=== PATIENT | female | born 1955 | race Caucasian/White ===

== ENCOUNTER → 2017-01-03 | Day surgery (SDC) ==
[2017-01-03 09:03] LABS: INR 1.04; PTT 26.5 Seconds (22.0-36.0)
--- NOTE | 2017-01-03 12:39 | Diag Imaging Result Document ---
PROCEDURE NAME: US GB < RUQ (LIMITED) - 01/03/2017 ULTRASOUND OF THE LIVER, 01/03/2017: COMPARISON: CT 12/16/2016. FINDINGS: Ultrasound was performed in an attempt to perform biopsy. There is an ill-defined hypoechoic lesion high in the dome of the right lobe of the liver. This measures about 4 cm. Due to its high location and difficult anatomy, ultrasound-guided biopsy could not be performed. CT- guided biopsy will be attempted. IMPRESSION: Liver mass suspicious for a metastasis.
[2017-01-03 12:47] VITALS: BP 144/86
--- NOTE | 2017-01-03 14:30 | Diag Imaging Result Document ---
PROCEDURE NAME: CT GUIDED BX LIVER - 01/03/2017 CT-GUIDED LIVER BIOPSY: COMPARISON: 12/16/2016. FINDINGS: The risks and benefits of the procedure were discussed with the patient. All questions were answered. Written and verbal informed consent was obtained. Overlying skin was prepped and draped in sterile fashion. Anesthesia was achieved with injection of 15 mL of 1% lidocaine. Using intermittent CT guidance, the 10/15 cm 19/20 gauge biopsy needle that was advanced into the superior right lobe of the liver dome. About 12 biopsy specimens were obtained. The needles were withdrawn intact. The patient reported no symptoms from the procedure. IMPRESSION: Successful and uncomplicated ultrasound guided liver mass biopsy.
== END | disposition home or self-care (01) ==
LOC: US 06:49
PROVIDERS: ATTEND Internal Medicine
DX: K76.0 Fatty (change of) liver, not elsewhere classified (principal); K74.0 Hepatic fibrosis; R16.0 Hepatomegaly, not elsewhere classified; Z79.899 Other long term (current) drug therapy; Z85.038 Personal history of other malignant neoplasm of large intestine
CPT/HCPCS: 47000; 76705; 77012; 85610; 85730; 88305; 88313

== ENCOUNTER 2020-01-25 21:51 | Inpatient (IN) ==
--- NOTE | 2020-01-25 22:21 | PROVIDER DOCUMENTATION ---
HPI-General Adult - General Chief Complaint: Abdominal Pain Stated Complaint: ABD PAIN/FEMALE Time Seen by Provider: 01/25/20 21:53 Source: patient Allergies/Adverse Reactions: Patient Allergies Allergy/AdvReac Type Severity Reaction Status Date / Time No Known Allergies Allergy Verified 01/25/20 22:39 Home Medications: Home Medication List Medication Instructions Recorded Confirmed Last Taken Type LISINOpril [Prinivil] 20 mg PO DAILY 05/26/15 01/25/20 01/25/20 05:30 History Levothyroxine Sodium [Synthroid] 88 mcg PO DAILY 10/14/15 01/25/20 01/25/20 05:30 History Rivaroxaban [Xarelto] 20 mg PO DAILY 11/27/19 01/25/20 01/25/20 06:30 History Regorafenib [Stivarga] 4 tab PO DAILY 01/25/20 01/25/20 01/25/20 06:30 History - History of Present Illness -Gen Adult Nature of Presenting Problems: 64 yof with colon cancer with liver mets presents with c/o generalized swelling, abdominal distention, SOB worse than baseline. Symptoms began last week but have progressively gotten worse so she presents to the ER. She is in mild distress on exam and is chronically ill appearing. Location of Pain/Injury: reports: abdomen, lower extremity Pain Radiation: reports: no radiation Quality of Pain: reports: fullness Severity: reports: severe Onset/Duration: reports: 1 week ago Context/Activities at Onset: reports: none Modifying Factors: improves with: nothing Associated Symptoms: reports: constipation, cough, loss of appetite, nausea, trouble walking. denies: chest pain, fever/chills Similar Symptoms Previously?: Yes Recently seen or treated by another doctor?: Yes (Dr. Marroquin-oncologist resumed PO chemo) Review of Systems - Adult - REVIEW OF SYSTEMS - ADULT Constitutional: reports: no symptoms reported. denies: see HPI, chills, fever, fatique, night sweats, weight gain, weight loss, other Eyes: reports: other (yellowing). denies: no symptoms reported, see HPI, discharge, dry eyes, decreased vision, blurred vision, double vision, eye pain, redness Ears, Nose, Mouth & Throat: reports: no symptoms reported. denies: see HPI, ear discharge, ear pain, hearing loss, tinnitus, epistaxis, sinus problem, nose pain, loose teeth, mouth/dental pain, mouth swelling, hoarseness, throat pain, throat swelling, other Cardiovascular: reports: no symptoms reported. denies: see HPI, chest pain, edema, heart murmur, irregular heart rate, orthopnea, palpitations, poor circulation, PND, syncope, other Respiratory: reports: see HPI, cough, shortness of breath. denies: no symptoms reported, chronic cough, dyspnea on exertion, excessive sputum production, hemoptysis, pleurisy, wheezing, other Gastrointestinal: reports: see HPI, abdominal pain, constipation, nausea, poor a ppetite. denies: no symptoms reported, hematemesis, diarrhea, difficulty swallowing, frequent heartburn, rectal bleeding, vomiting, other Genitourinary: reports: no symptoms reported. denies: see HPI, dysuria, discharge, frequency, flank pain, frequent UTI's, hematuria, hesitency, incontinence, urinary retention, urgency, other Musculoskeletal: reports: no symptoms reported. denies: see HPI, bone pain, back pain, frequent leg cramps, joint pain, joint swelling, muscle aches, muscle weakness, neck pain, other Integumentary: reports: see HPI. denies: no symptoms reported, hives, hair loss, itching, mole changes, nail changes, rash, skin sores/ulcer, skin thickening, other Neurological: reports: no symptoms reported. denies: see HPI, ataxia, dizziness/vertigo, headache/migraines, loss of balance, numbness, paresthesia, seizure, slurred speech, syncope, tremors, other Psychiatric: reports: no symptoms reported. denies: see HPI, anxiety, anti-depressant use, alcohol/drug dependence, depression, emotional problems, insomnia, panic attacks, suicidal thoughts, other Endocrine: reports: no symptoms reported. denies: see HPI, change in skin pigment, excessive sweating, goiter, cold intolerance, heat intolerance, increased hunger, increased thirst, polyuria, other Hematologic/Lymphatic: reports: no symptoms reported. denies: see HPI, blood clots, easy bruising, low blood count, lymphedema, prolonged bleeding, swollen lymph nodes, transfusions, other Allergic/Immunologic: reports: no symptoms reported. denies: see HPI, allergic reactions, allergic rhinitis, asthma, eczema, food allergy, frequent infections, hay fever, hives, positive PPD, urticaria, other Past History - Adult - PAST MEDICAL HISTORY-ADULT Review of Records: reports: Nursing Assessment Review, Social history reviewed & non-contributory. Major Childhood Illnesses: reports: denies history Cardiovascular: reports: HTN Respiratory: reports: COPD Gastrointestinal: reports: cancer (colon with mets to liver) Obstetrical/Gynecological: reports: denies history Genitourinary: reports: denies history Musculoskeletal: reports: denies history Neurological: reports: denies history Endocrine/Immune: reports: thyroid disorder (hypo) Other Conditions: reports: denies history - PRIOR SURGERIES/PROCEDURES Surgical/Procedure History: reports: cholecystectomy, hysterectomy, bowel surgery (colon resection) - IMMUNIZATION STATUS Childhood Immunizations: See Nurse Assessment Flu Vaccine: See Nurse Assessment - FAMILY HISTORY Family History: reviewed, not pertinent Physical Exam-General - PHYSICAL EXAM-ADULT Initial Vital Signs Reviewed: Yes - CONSTITUTIONAL General Appearance: alert, mild distress - EYES Eyes: PERRL/EOMI, pink conjunctivae - HEAD, EARS, NOSE, MOUTH & THROAT HENMT: normocephalic/atraumatic, moist mucous membranes, normal ENT inspection - NECK Neck: non-tender, full range of motion - RESPIRATORY Respiratory: chest non-tender, no pleuratic chest pain, wheezing. negative: no respiratory distress (mild distress, placed on 2 L n/c for comfort) - CARDIOVASCULAR Cardiovascular: normal peripheral pulses, no gallop, no JVD, no murmur, tach ycardia. negative: no edema (+2 pitting edema BLE) - GASTROINTESTINAL (ABDOMEN) Abdominal Exam: no pulsatile mass, distended, tenderness - LYMPHATIC Lymphatic: no adenopathy - MUSCULOSKELETAL Back Exam: normal inspection, no CVA tenderness, no vertebral tenderness Extremity: normal range of motion, non-tender, pedal edema (BLE +2) Peripheral Pulses: radial (R): 2+, radial (L): 2+ - SKIN Integumentary: normal turgor, warm/dry, jaundice (severe) - NEUROLOGIC Neurologic: grossly normal - PSYCHIATRIC Psych/Mental Status: normal mood/affect, oriented x 3 Progress - PLAN OF CARE/RESULTS Progress/Plan/Lab Results: Vital Signs - 8 hr 01/25/20 21:54 Temperature 97.5 F L Pulse Rate 120 H Respiratory Rate 24 Blood Pressure 127/73 O2 Sat by Pulse Oximetry 95 Orders Category Date Time Status Cardiac Monitoring NOW Care 01/25/20 22:04 Active ED: Urine Bedside ORDERED Care 01/25/20 22:03 Active IV Insertion NOW Care 01/25/20 22:04 Active NEWS Score >or=5:Order NEWS Bundle S.O. NOW Care 01/25/20 22:02 Active Notify Provider of NEWS Score NOW Care 01/25/20 22:04 Active NPO Diet 01/25/20 22:03 Active CHEST-1 VIEW [RAD] Stat Exams 01/25/20 22:04 Ordered BLOOD CULTURE [BLDCUL] Stat Lab 01/25/20 22:04 Uncollected BNP [PRO B-NATRIURETIC PEPTIDE] Stat Lab 01/25/20 22:07 Uncollected CBC WITH DIFF [HEME] Stat Lab 01/25/20 22:03 Uncollected CBC WITH DIFF [HEME] Stat Lab 01/25/20 22:04 Uncollected CK PROFILE [SP CHEM] Stat Lab 01/25/20 22:04 Uncollected COMPREHENSIVE METABOLIC PANEL [CHEM] Stat Lab 01/25/20 22:03 Uncollected COMPREHENSIVE METABOLIC PANEL [CHEM] Stat Lab 01/25/20 22:04 Uncollected LACTATE, PLASMA [CHEM] Q3H Lab 01/25/20 22:15 Uncollected LACTATE, PLASMA [CHEM] Q3H Lab 01/26/20 01:15 Uncollected LACTATE, PLASMA [CHEM] Q3H Lab 01/26/20 04:15 Uncollected LIPASE [CHEM] Stat Lab 01/25/20 22:03 Uncollected PROTIME WITH INR [COAG] Stat Lab 01/25/20 22:04 Uncollected PTT [COAG] Stat Lab 01/25/20 22:04 Uncollected TROPONIN T HIGH SENSITIVITY Stat Lab 01/25/20 22:04 Uncollected UA NIMS W/REFLEX CULT [URINALYSIS] Stat Lab 01/25/20 22:06 Uncollected Abd Pain/OB <20 weeks Stat Oth 01/25/20 22:03 Ordered O2 Per Protocol Stat Oth 01/25/20 22:04 Active EKG [EKG] Stat Ther 01/25/20 22:12 Ordered On initial exam advanced care planning was discussed with the patient she has no living will, she reports if she stops breathing she would want to "be on ventilator for a little while", she reports if her heart were stopped should would want "nothing" done. Dr. Aguirre was notified so that he could place orders after confirming with the patient. She is alert and oriented and able to make her own medical decisions 0000: the patient and spouse have discussed code status, they after discussed elect DNR/DNR status with all medical interventions. Dr Aguirre has coffered with patient and spouse who verbalized this to the patient Result Diagrams: 01/25/20 22:52 01/25/20 22:52 - CONSULTS/PCP/HOSPITALIST Notification #1 *Consult/PCP/Hospitalist*: Dr. Short Time Discussed: 00:22 Consult Disposition: Admit (no new recommened orders) Departure - Departure Date of Disposition Decision: 01/26/20 Time of Disposition Decision: 00:05 DIAGNOSIS: Colon cancer metastasized to liver, Liver failure, Pneumonia, Hyponatremia, Coagulopathy Disposition: ADMITTED INPATIENT 09 Certified Medical Emergency: Emergent Condition: Stable Referrals and Follow-Ups: None,PCP [Primary Care Provider] - - Critical Care Note This patient required my direct & personal management of CC.: Yes Total Time (mins): 45 Critical Care Statement: This patient required my direct personal management to treat or rule out processes, the absence of which, could potentiallly result in sudden, clinically significant life or limb threatening deterioration. Attestation - Physician/ MONA Attestation Patient care was provided by Advanced Practice Provider:: Yes Advanced Practice Provider:: Jordyn Llamas Advanced Practice Provider documentation review:: The Mid-level provider documentation, treatment plan and medical decision making was reviewed by the jovanni perdomo who agrees with all treatment and medical decision making by the MLP. The physician spent face to face time with patient:: Yes (Dr. Aguirre) Advanced Practice Provider documentation review:: Supervising physician onsite and consulted in the evaluation and care of this patient. The physician did have a face to face encounter with the patient.
[2020-01-25 23:17] LABS: URINE SOURCE CATH
[2020-01-25 23:22] LABS: BILIRUBIN URINE LARGE (NEGATIVE); BLOOD URINE NEGATIVE (NEGATIVE); COLOR YELLOW; GLUCOSE URINE NEGATIVE (NEGATIVE); KETONE URINE NEGATIVE (NEGATIVE); LEUKOCYTES URINE NEGATIVE (NEGATIVE); NITRITE URINE NEGATIVE (NEGATIVE); PROTEIN URINE NEGATIVE (NEGATIVE); SP GRAVITY URINE 1.013; TURBIDITY URINE CLEAR (CLEAR); UR EPITHELIAL CELLS <10 /HPF (<10); URINE BACTERIA NEGATIVE /HPF; URINE RBC <10 /HPF (<10); URINE WBC <10 /HPF (<10); UROBILINOGEN URINE NORMAL (NORMAL)
[2020-01-25 23:28] LABS: BASO# 0.03 X1000 (0.0-0.2); BASO% 0.2 % (0.0-0.8); EOS% 0.8 % (0.0-10.0); HEMATOCRIT 34.5 % (37.0-47.0); HEMOGLOBIN 11.8 g/dL (12.0-16.0); IMM GRAN# 0.04 X1000 (0.0-0.04); IMM GRAN% 0.3 % (0.0-0.5); LYMPH% 6.5 % (20.5-51.1); MCH 29.6 PG (27-31); MCHC 34.2 g/dL (33-37); MCV 86.7 FL (81-99); MONO# 1.49 X1000 (0.11-0.59); MONO% 12.2 % (1.7-9.3); MPV 11.3 FL (7.4-10.4); NEUT# 9.76 X1000 (1.4-6.5); PLT 200 X1000 (130-400); RBC 3.98 XMIL (4.2-5.4); RDW 21.8 % (11.5-14.5); WBC 12.22 X1000 (4.8-10.8)
--- NOTE | 2020-01-25 23:28 | EKG Report ---
Test Performed on : 01/25/2020 11:16:27 PM Test Reason : CP Blood Pressure : / mmHG Vent. Rate : 118 BPM Atrial Rate : 118 BPM P-R Int : 126 ms QRS Dur : 070 ms QT Int : 286 ms P-R-T Axes : 065 049 -39 degrees QTc Int : 400 ms Sinus tachycardia. Possible Left atrial enlargement Low voltage QRS Nonspecific T wave abnormality Abnormal ECG When compared with ECG of 16-MAY-2017 13:41, Vent. rate has increased BY 47 BPM Nonspecific T wave abnormality, worse in Inferior leads Nonspecific T wave abnormality now evident in Anterolateral leads Unconfirmed Result
[2020-01-25 23:30] LABS: AGAP 15; ALBUMIN 2.4 g/dL (3.5-5.0); ALKALINE PHOSPHATASE 797 U/L (32-104); BUN 8 mg/dL (8-22); CALCIUM 8.1 mg/dL (8.8-10.2); CHLORIDE 91 mmol/L (98-107); CK PROFILE 79 U/L (24-173); COSMO 255; CREATININE 0.3 mg/dL (0.5-0.9); ESTIMATED GFR > 60; GLUCOSE 127 mg/dL (70-104); GOT 122 U/L (10-30); GPT 35 U/L (10-36); LIPASE 12 U/L (13-60); POTASSIUM 5.2 mmol/L (3.5-5.1); SODIUM 127 mmol/L (136-145); TCO2 21 mmol/L (25-35)
[2020-01-25] MEDS ORDERED: NS 1,000 ML IV ONE (23:43)
[2020-01-25] MEDS ORDERED: ZOSYN 3.375 GM in NS 50 ML IV ONE (23:46)
[2020-01-25] MEDS ORDERED: VANCOMYCIN 1 GM/NS 1 GM/250 ML IVPB IV ONE (23:46)
[2020-01-25 23:53] LABS: INR 2.09; PROTIME 24.7 Seconds (11.0-16.0)
[2020-01-25 23:54] LABS: PTT 42.8 Seconds (22.3-41.8)
[2020-01-26] MEDS ORDERED: OXYCODONE PO ONE (00:04)
[2020-01-26] MEDS ORDERED: OXY IR PO ONE (00:15)
[2020-01-26] MEDS ORDERED: KAYEXALATE PO ONE (04:15)
[2020-01-26] MEDS ORDERED: VANCOMYCIN IV PER PHARMACY MISC SCH (04:15)
[2020-01-26] MEDS: DUONEB (A & A) INH SCH ×6 (04:29→23:39)
[2020-01-26] MEDS: MAXIPIME 2 GM/NS 2 GM/100 ML IVPB IV SCH ×2 (05:21→21:52)
[2020-01-26] MEDS: MS CONTIN PO SCH ×2 (05:22→19:12)
[2020-01-26] MEDS ORDERED: VANCOMYCIN 850 MG in NS 250 ML IV ONE (06:00)
[2020-01-26] MEDS: SYNTHROID PO SCH (06:50)
--- NOTE | 2020-01-26 07:13 | Diag Imaging Result Doc PS360 ---
EXAM: CT ANGIOGRAM THORAX HISTORY: hypoxia TECHNIQUE: CT chest without intravenous contrast. Pulmonary arterial protocol with MIP images. COMPARISON: 08/23/2019 FINDINGS: Trace pleural fluid. No aortic aneurysm or dissection. Normal opacification of the pulmonary arteries and their branches. No enlarged lymph nodes. There are many lung nodules scattered throughout both lungs. The majority of these measure less than 1 cm. The largest is in the posterior right lower lobe measuring 2.0 cm. The lung nodules are much more numerous on the current exam and larger on the current exam when compared to the prior study. There are diffuse hepatic metastases. These are also larger and more numerous than on the prior study. A small amount of ascites has developed since the prior study. IMPRESSION: 1.No pulmonary emboli 2.Increase in the lung metastases 3.Increase in the hepatic metastases 4.Development of trace pleural fluid 5.Development of a small amount of ascites 6.A preliminary report was given at 5:57 AM This exam was performed using automated exposure control, adjustment of mA or kV according to patient size, and/or use of iterative reconstruction technique. Electronically signed by Obed Mckeon 01/26/2020 7:11 AM
--- NOTE | 2020-01-26 07:30 | Diag Imaging Result Doc PS360 ---
EXAM: CHEST-1 VIEW HISTORY: sepsis TECHNIQUE: Single view COMPARISON: 10/04/2018 FINDINGS: Poor inspiratory effort. There are numerous bilateral lung nodules which is developed. No cardiomegaly. No pulmonary edema. No pleural effusions identified. No change in the right-sided catheter. IMPRESSION: Development of numerous pulmonary nodules. Electronically signed by Obed Mckeon 01/26/2020 7:27 AM
--- NOTE | 2020-01-26 07:52 | HISTORY AND PHYSICAL ---
PRIMARY CARE PHYSICIAN: Dr. Bruce. CHIEF COMPLAINT: Shortness of breath of 6 days' duration. HISTORY OF PRESENTING COMPLAINT: Patient is a 64-year-old female with history of metastatic colon cancer, hypertension, hypothyroidism, who presented with shortness of breath of 6 days' duration. The patient states over the last 6 days, she has been progressively getting more short of breath. The shortness of breath started suddenly associated with cough productive of clear sputum, which has increased in quantity as well. She denies any chest pain, any fever. Denies any nausea or vomiting. She describes bilateral leg swelling over the last 5 days as well, which is new. She states this has not shown improvement in the last 5 days, has been progressively swelling. She denies any orthopnea or PND but describes occasional palpitations. Of note, patient has a history of metastatic colon cancer which has been diagnosed over the last 4 or 5 years. She has worsening of metastasis to the liver and also to the lungs. The patient presented to [facility]. Evaluation showed leukocytosis and a chest x-ray concerning for bibasilar infiltrates. Patient was started on antibiotics and was transferred here for additional followup given comorbidities of metastatic colon cancer. PAST MEDICAL HISTORY: 1. Hypertension. 2. Hypothyroidism. 3. Metastatic colon cancer with metastasis to the liver, to the lungs. 4. History of Pulmonary embolism on anticoagulation PAST SURGICAL HISTORY: 1. Hysterectomy. 2. Cholecystectomy. 3. Appendectomy. 4. Bunionectomy of the left foot. 5. Colon resection. SOCIAL HISTORY: She describes a past smoking history of 40 pack years. Denies any alcohol use. FAMILY HISTORY: Mother has history of diabetes and hypertension. Father has no significant medical condition. Grandfather had history of lung cancer. ALLERGIES: No known drug allergies. HOME MEDICATIONS: 1. Lisinopril 20 mg daily. 2. Levothyroxine 88 mcg daily. 3. Rivaroxaban 20 mg daily. 4. Regorafenib 40 mg 4 tablets daily. REVIEW OF SYSTEMS: She describes generalized weakness and abdominal pain. Otherwise 10-point review of systems is negative except as noted in HPI. PHYSICAL EXAMINATION: VITALS: Temperature was 98 degrees, blood pressure 132/55, O2 saturations 97% on 2 liters, respiratory rate is 14. GENERAL: A middle-aged female in no acute respiratory distress on 2 liters of oxygen. HEENT: Not pale. Icteric. Acyanosed. CARDIOVASCULAR: S1 and S2 heard. No murmurs, rubs or gallops. RESPIRATORY: Fair air entry bilaterally. She has diffuse wheezes noted. No crackles noted. ABDOMEN: Abdomen is distended and she describes generalized abdominal tenderness. Bowel sounds normal. No organomegaly noted. EXTREMITIES: +1 to +2 bilateral pedal edema up to the upper part of the leg. NEUROLOGICAL: Alert and oriented x3. No significant neurological abnormality. SKIN: No significant skin rash noted. LABORATORY DATA: WBC 12.22, hemoglobin 11.8, platelets 200,000. INR is 2.09. Sodium 127, potassium 5.2, chloride 91, bicarb 21, anion gap 15, BUN 8, creatinine 0.3. AST 122, ALT 35, total bilirubin is 15.3. Creatinine kinase 79. Alkaline phosphatase 797. Troponin T 11. ProBNP 525. Total protein 5, albumin 2.4. Urinalysis: Specific gravity 1.013, glucose negative, ketone negative, nitrite negative, leukocyte esterase is negative, bacteria negative. Chest x-ray: I reviewed the chest x-ray done that shows bibasilar infiltrates, worse on the right. An EKG shows sinus tachycardia with probably fibrillating P waves although difficult to ascertain as EKG does not have a good baseline, regular R R interval and no significant ST-T changes noted. ASSESSMENT AND PLAN: The patient is a 64-year-old with history of metastatic colon cancer with metastasis to the lungs, the liver, who presents with worsening shortness of breath over the last 6 days with associated cough productive of clear phlegm. On physical examination, the patient is noted to be wheezing and now requiring 2 liters of oxygen which is new for her and described associated bilateral pedal edema as well which is also new for her. Acute Diagnosis 1. Multifocal pneumonia, 2. acute hypoxic respiratory failure, 3. hyperkalemia, 4. volume depletion. 5. Transaminitis with worsening liver function. 6. Progressively worsening Metastatic colon cancer with metastasis to the liver and the lungs. 7. COPD Exacerbation Chronic Diagnosis 7. Hypertension. 8. Hypothyroidism. PLAN: - For acute hypoxic respiratory failure, the patient's hypoxia may be due to multifactorial causes, could be due to pneumonia versus worsening lung metastasis versus heart failure as well. We will work up patient and treat accordingly. So would start patient on IV antibiotics for pneumonia. Given patient has been on chemotherapy for colon cancer, we will do broad-spectrum antibiotics with IV vancomycin and cefepime. Will do a 2D echo as well to ascertain the structure and functional status of the heart to rule out any heart failure. We will do a CTA of the chest to look at the structure of the lungs to ascertain if there is worsening of the lung metastasis. We will keep patient on 2 L of oxygen and titrate down as needed. - For multifocal pneumonia, we will treat with IV vancomycin and cefepime, sputum culture, and adjust antibiotics as needed. - Also, patient appears to also have mild COPD. We will treat with DuoNeb inhalers and also IV steroids, methylprednisone. Given patient's history of smoking, so I suspect patient has COPD in addition to other abnormalities listed above. - Patient's transaminitis and worsening liver function. Most likely this is secondary to worsening liver metastasis from colon cancer. We will do a viral hepatitis panel to rule out a viral hepatitis cause. Her liver dysfunction seems acute compared to baseline as the hyperbilirubinemia is worse previously. Also the assessment may be a component of hepatic congestion if she has heart failure as well. We need 2D echo to ascertain patient's structure and cardiac function. - For hyperkalemia, we will give patient 1 time Kayexalate to help with excretion of excess potassium and monitor closely. Expect improvement in potassium level. Patient already received IV fluids to help with renal function. Monitor potassium level closely. - Palliative care consult as patient's clinical condition is worsening given worsening metastasis of colon cancer and oncology consult to re-evaluate her use of chemotherapy. Patients prognosis is poor. - We will continue patient's other home medications. The patient is already on rivaroxaban anticoagulation for history of pulmonary embolism. We will continue patient's levothyroxine as well for hypothyroidism. DVT prophylaxis: Patient is on rivaroxaban. CODE STATUS: The patient is DNI/DNR. DISPOSITION: We will admit inpatient and discharge when medically stable. [facility]
[2020-01-26 08:05] LABS: BASO# 0.14 X1000 (0.0-0.2); BASO% 1.1 % (0.0-0.8); EOS# 0.05 X1000 (0.0-0.7); EOS% 0.4 % (0.0-10.0); HEMATOCRIT 37.1 % (37.0-47.0); HEMOGLOBIN 12.3 g/dL (12.0-16.0); IMM GRAN# 0.03 X1000 (0.0-0.04); IMM GRAN% 0.2 % (0.0-0.5); LYMPH# 0.99 X1000 (1.2-3.4); LYMPH% 8.1 % (20.5-51.1); MCH 29.7 PG (27-31); MCHC 33.2 g/dL (33-37); MCV 89.6 FL (81-99); MONO# 1.38 X1000 (0.11-0.59); MONO% 11.2 % (1.7-9.3); MPV 11.2 FL (7.4-10.4); NEUT# 9.69 X1000 (1.4-6.5); PLT 175 X1000 (130-400); RBC 4.14 XMIL (4.2-5.4); RDW 22.3 % (11.5-14.5); WBC 12.28 X1000 (4.8-10.8)
[2020-01-26 09:22] LABS: INR 1.72; PROTIME 20.6 Seconds (11.0-16.0)
[2020-01-26 09:39] LABS: AGAP 14; ALB/GLOB RATIO 0.7; ALBUMIN 2.2 g/dL (3.5-5.0); ALKALINE PHOSPHATASE 769 U/L (32-104); BUN 8 mg/dL (8-22); CALCIUM 8.3 mg/dL (8.8-10.2); CHLORIDE 93 mmol/L (98-107); COSMO 254; CREATININE 0.7 mg/dL (0.5-0.9); ESTIMATED GFR > 60; GLUCOSE 66 mg/dL (70-104); GOT 113 U/L (10-30); GPT 32 U/L (10-36); POTASSIUM 5.1 mmol/L (3.5-5.1); SODIUM 128 mmol/L (136-145); TCO2 21 mmol/L (25-35); TOTAL BILIRUBIN 13.02 mg/dL (0.20-1.00); TOTAL PROTEIN 5.4 g/dL (6.3-8.3)
[2020-01-26] MEDS: DILAUDID IV PRN (11:30)
[2020-01-26] MEDS: XARELTO PO SCH (11:33)
[2020-01-26] MEDS: SOLU-MEDROL IV SCH ×2 (11:34→19:15)
[2020-01-26] MEDS: PRINIVIL PO SCH (11:52)
[2020-01-26] MEDS: NS 1,000 ML IV SCH ×2 (11:53→23:14)
[2020-01-26] MEDS: PATIENT'S OWN MED PO SCH (14:00)
[2020-01-26] MEDS ORDERED: XANAX PO PRN (14:09)
[2020-01-26] MEDS: VANCOMYCIN 1,450 MG in NS 250 ML IV SCH (19:13)
--- NOTE | 2020-01-26 19:44 | PROGRESS NOTE ---
DATE: 01/26/2020 SUBJECTIVE: The patient is resting comfortably in bed. She complains of abdominal pain and worsening abdominal distention. OBJECTIVE: Vital Signs: Temperature 97.5, blood pressure 125/75, heart rate 101, respirations 19, O2 saturation 99% on 2 L nasal cannula. Intake 800, output 400. General: This is an elderly female lying in bed in no acute distress. Heart: S1, S2 normal. Regular rate and rhythm. Lungs: Coarse breath sounds. Abdomen: Positive bowel sounds. Soft. Distended. Extremities: Has 1+ edema bilaterally. Neurologic: The patient is alert and oriented x3. LABS: White blood cell count 12, hemoglobin 12, hematocrit 37, platelets 175,000. INR 1.7. Sodium 128, potassium 5.1, chloride 93, CO2 of 21, BUN 8, creatinine 0.7, glucose 66. Total bilirubin 13, AST 113, ALT 32, alkaline phosphatase 769, lactate 2.3. IMAGING: CT angiogram of the thorax revealed no pulmonary emboli. Increased liver and hepatic metastasis. Ascites is present. ASSESSMENT AND PLAN: 1. Metastatic colon cancer. The patient's CT of the chest reveals worsened lung and hepatic metastasis. Will consult Dr. Murray for further recommendations. In the meantime, since the patient is hurting, we will start IV Dilaudid for pain control. The patient has stated that she wants to be a DO NOT RESUSCITATE level 1. She also reports that she is interested in hospice. 2. Transaminitis secondary to diffuse hepatic metastasis. Aware. 3. Ascites. We will order an abdominal ultrasound to see if there is enough fluid for possible paracentesis. 4. Hypothyroidism. Continue on Synthroid. 5. Constipation. Continue on MiraLAX. 6. Deep vein thrombosis prophylaxis. The patient is currently on Xarelto. cc: Liliya Louise MD
[2020-01-27] MEDS: DILAUDID IV PRN ×2 (01:51→09:22)
[2020-01-27] MEDS: DUONEB (A & A) INH SCH ×6 (03:10→23:12)
[2020-01-27] MEDS: NS 1,000 ML IV SCH ×2 (06:45→15:22)
[2020-01-27] MEDS: SOLU-MEDROL IV SCH ×2 (06:45→17:04)
[2020-01-27] MEDS: VANCOMYCIN 1,450 MG in NS 250 ML IV SCH ×2 (06:45→17:03)
[2020-01-27] MEDS: MS CONTIN PO SCH ×2 (06:45→17:03)
[2020-01-27] MEDS: SYNTHROID PO SCH (06:45)
[2020-01-27 07:19] LABS: HEMATOCRIT 36.1 % (37.0-47.0); MCHC 33.2 g/dL (33-37); MCV 90.3 FL (81-99); MPV 10.1 FL (7.4-10.4); RDW 21.8 % (11.5-14.5); WBC 9.36 X1000 (4.8-10.8)
[2020-01-27 07:48] LABS: HEPATITIS PROFILE ACUTE SEE COMMENTS
[2020-01-27 07:50] LABS: AGAP 13; ALB/GLOB RATIO 0.7; ALBUMIN 2.4 g/dL (3.5-5.0); ALKALINE PHOSPHATASE 769 U/L (32-104); BUN 13 mg/dL (8-22); CALCIUM 9.1 mg/dL (8.8-10.2); CHLORIDE 96 mmol/L (98-107); COSMO 265; CREATININE 0.7 mg/dL (0.5-0.9); ESTIMATED GFR > 60; GLUCOSE 112 mg/dL (70-104); GOT 109 U/L (10-30); GPT 35 U/L (10-36); POTASSIUM 5.5 mmol/L (3.5-5.1); SODIUM 132 mmol/L (136-145); TCO2 23 mmol/L (25-35); TOTAL BILIRUBIN 12.33 mg/dL (0.20-1.00); TOTAL PROTEIN 5.7 g/dL (6.3-8.3)
[2020-01-27] MEDS: MIRALAX PO SCH (09:03)
[2020-01-27] MEDS: MAXIPIME 2 GM/NS 2 GM/100 ML IVPB IV SCH ×2 (09:03→21:20)
[2020-01-27] MEDS: PRINIVIL PO SCH (09:04)
[2020-01-27] MEDS: XARELTO PO SCH (09:04)
[2020-01-27] MEDS: PATIENT'S OWN MED PO SCH (09:06)
--- NOTE | 2020-01-27 13:19 | ECHO REPORT ---
ORDER DATE: 01/26/2020 MEASUREMENTS: Septal thickness 0.9, left ventricular internal diameter in diastole 3.4, posterior wall thickness 0.9, left ventricular internal diameter in systole 2.1, aortic root 2.7. SUMMARY: 1. Adequate quality study. 2. Aortic valve is trileaflet and opens normally on 2-dimensional images. The peak gradient across the aortic valve is 12 mmHg, with a mean gradient of 6 mmHg. Mitral, tricuspid, and pulmonic valves are without evidence of structural abnormality, with trace mitral regurgitation and mild tricuspid regurgitation. The estimated systolic PA pressure by Doppler is 40 mmHg, suggesting mild pulmonary hypertension. The aortic root is normal in size. 3. Normal left ventricular dimension is demonstrated. The left ventricle appears hyperdynamic, with estimated left ventricular ejection fraction at least 70%. No regional wall motion abnormality can be appreciated. Doppler suggests grade 1 left ventricular diastolic dysfunction. Left atrium, right atrium, and right ventricle are normal in size with grossly preserved right ventricular systolic function. 4. No pericardial effusion. 5. Inferior vena cava not well demonstrated. cc: Je Velez MD
[2020-01-27] MEDS: NEURONTIN PO SCH (16:46)
--- NOTE | 2020-01-27 16:58 | Diag Imaging Result Doc PS360 ---
US ABDOMEN-COMPLETE - 01/27/2020 INDICATION: ascites/liver mets COMPARISON: CT 01/03/2020 FINDINGS: The liver echotexture is very heterogeneous. This is compatible with a numerous solid metastases. There is a small amount of ascites. There is mild splenomegaly. The spleen measures 12.7 x 12.6 x 4.6 cm. The gallbladder is absent. The common bile duct measures 7 mm. The pancreas and both kidneys are normal. Aorta, IVC, and main portal vein are patent. IMPRESSION: Small amount of ascites. Liver metastases. Mild splenomegaly. No change from prior. Electronically signed by Cholo Orr 01/27/2020 4:56 PM
--- NOTE | 2020-01-27 20:17 | PROGRESS NOTE ---
DATE: 01/27/2020 SUBJECTIVE: The patient is resting comfortably. She complains of abdominal pain. OBJECTIVE: Vital Signs: Temperature 97.4 degrees, blood pressure 130/77, heart rate 104, respirations 22, O2 saturation is 93% on 2 L nasal cannula. General: She is a chronically ill- appearing elderly female lying in bed in no acute distress. Heart: S1, S2 normal. Tachycardic. Lungs: Equal air entry bilaterally. No wheezing. No rales. Abdomen: Positive bowel sounds. Soft, nontender, nondistended. Extremities: No edema, no cyanosis. Neurologic: The patient is alert and oriented x3. LABORATORY DATA: White blood cell count 9.3, hemoglobin 12, hematocrit 36, platelets 151,000. Sodium 132, potassium 5.5, chloride 96, CO2 is 23, BUN 13, creatinine 0.7, glucose 109. IMAGING: Abdominal ultrasound, small amount of ascites. Liver metastases. Splenomegaly. ASSESSMENT AND PLAN: 1. Metastatic colon cancer. The CT of the chest reveals worsened metastatic disease. We will consult with Dr. Marroquin for further recommendations. Continue on the current pain control regimen. We will also consult with palliative care. 2. Transaminitis secondary to diffuse hepatic metastases. Aware. 3. Hypothyroidism. Continue on Synthroid. 4. Constipation. We will adjust the patient's laxative regimen. 5. Chronic anticoagulation. The patient is currently on Xarelto. cc: Liliya Louise MD
[2020-01-27] MEDS: ZOFRAN IV PRN (21:20)
[2020-01-27] MEDS: COREG PO SCH (21:20)
[2020-01-28] MEDS: NS 1,000 ML IV SCH (02:48)
[2020-01-28] MEDS: DUONEB (A & A) INH SCH ×5 (04:14→20:11)
[2020-01-28] MEDS: ZOFRAN IV PRN ×2 (04:52→18:16)
[2020-01-28] MEDS: SYNTHROID PO SCH ×2 (05:23→06:01)
[2020-01-28] MEDS: MS CONTIN PO SCH ×2 (05:23→18:16)
[2020-01-28] MEDS: PRILOSEC PO SCH ×2 (05:23→06:01)
--- NOTE | 2020-01-28 07:08 | EKG Report ---
Test Performed on : 01/28/2020 06:59:40 AM Test Reason : tachycardia Blood Pressure : / mmHG Vent. Rate : 103 BPM Atrial Rate : 103 BPM P-R Int : 112 ms QRS Dur : 072 ms QT Int : 312 ms P-R-T Axes : 068 044 032 degrees QTc Int : 408 ms Sinus tachycardia. Otherwise normal ECG When compared with ECG of 25-JAN-2020 23:16, (Unconfirmed) No significant change was found Confirmed by Royal Clay MD ([id number]) on 01/30/2020 3:21:35 PM
--- NOTE | 2020-01-28 07:14 | Diag Imaging Result Doc PS360 ---
CHEST-1 VIEW - 01/28/2020 INDICATION: dyspnea COMPARISON: 01/25/2020 FINDINGS: Stable right chest port. Stable severely low lung volumes. Stable numerous pulmonary nodules. IMPRESSION: No change from prior. Electronically signed by Cholo Orr 01/28/2020 7:12 AM
[2020-01-28] MEDS: MAXIPIME 2 GM/NS 2 GM/100 ML IVPB IV SCH (08:09)
[2020-01-28] MEDS: MIRALAX PO SCH (08:09)
[2020-01-28] MEDS: XARELTO PO SCH (08:09)
[2020-01-28] MEDS: NEURONTIN PO SCH ×3 (08:10→17:01)
[2020-01-28] MEDS: COREG PO SCH (08:10)
[2020-01-28 08:20] LABS: BASO# 0.01 X1000 (0.0-0.2); BASO% 0.1 % (0.0-0.8); EOS# 0.03 X1000 (0.0-0.7); EOS% 0.2 % (0.0-10.0); HEMATOCRIT 36.6 % (37.0-47.0); HEMOGLOBIN 11.9 g/dL (12.0-16.0); IMM GRAN# 0.05 X1000 (0.0-0.04); IMM GRAN% 0.3 % (0.0-0.5); LYMPH# 0.57 X1000 (1.2-3.4); LYMPH% 3.8 % (20.5-51.1); MCHC 32.5 g/dL (33-37); MCV 89.3 FL (81-99); MONO# 0.82 X1000 (0.11-0.59); MONO% 5.5 % (1.7-9.3); MPV 10.9 FL (7.4-10.4); NEUT# 13.41 X1000 (1.4-6.5); NEUT% 90.1 % (42.2-75.2); PLT 224 X1000 (130-400); RDW 22.2 % (11.5-14.5); WBC 14.89 X1000 (4.8-10.8)
[2020-01-28 08:29] LABS: BANDS 6 % (0-1); LYMPHS 6 % (21-51); SEGS 88 % (42-75)
[2020-01-28 08:30] LABS: ANISOCYTOSIS 2+; HYPOCHROM 1+
[2020-01-28 08:34] LABS: AGAP 13; ALB/GLOB RATIO 0.8; ALBUMIN 2.4 g/dL (3.5-5.0); ALKALINE PHOSPHATASE 869 U/L (32-104); BUN 25 mg/dL (8-22); CALCIUM 9.3 mg/dL (8.8-10.2); CHLORIDE 98 mmol/L (98-107); COSMO 267; CREATININE 0.8 mg/dL (0.5-0.9); ESTIMATED GFR > 60; GLUCOSE 104 mg/dL (70-104); GOT 137 U/L (10-30); GPT 40 U/L (10-36); SODIUM 131 mmol/L (136-145); TCO2 20 mmol/L (25-35); TOTAL BILIRUBIN 10.95 mg/dL (0.20-1.00); TOTAL PROTEIN 5.6 g/dL (6.3-8.3)
[2020-01-28] MEDS ORDERED: ALBUTEROL 0.5% INH CONC FOR HYPERKALEMIA INH ONE ×2 (08:51→15:51)
[2020-01-28] MEDS ORDERED: KAYEXALATE PO ONE (08:52)
[2020-01-28] MEDS ORDERED: SODIUM BICARBONATE 8.4% IV PUSH ONE (08:55)
[2020-01-28] MEDS ORDERED: D50W SYRINGE IV ONE ×2 (08:56→15:51)
[2020-01-28] MEDS ORDERED: HUMULIN R IV ONE ×2 (08:58→15:52)
[2020-01-28] MEDS ORDERED: CALCIUM GLUCONATE 1 GM in NS 50 ML IV ONE (08:59)
[2020-01-28] MEDS ORDERED: ALBUTEROL 0.5% INH CONC FOR HYPERKALEMIA ONE (09:41)
--- NOTE | 2020-01-28 09:44 | CONSULTATION ---
DATE OF CONSULTATION: 01/28/2020 CHIEF COMPLAINT: Urinary retention. HISTORY OF PRESENT ILLNESS: Ms. De La Garza is a 64-year-old with history of metastatic colon cancer, hypertension, hypothyroidism, who presented to the emergency room with shortness of breath over a six-day period. She says this had progressively worsened and was associated with productive cough of clear sputum. She was having some nausea and vomiting, as well as bilateral lower extremity swelling, as well as abdominal swelling. The patient has known metastatic colon cancer to her liver, as well as lungs. A CT of the chest and pelvis was obtained which showed worsening liver metastasis, as well as lung metastasis. She was admitted for observation due to leukocytosis and concern for bibasilar infiltrates. She started on antibiotics. The patient was scheduled to be seen in Urology office today, but is admitted to the hospital. The patient states she has had difficulty with urination. She feels like sometimes she has to strain to urinate and it is difficult for her to urinate. She denies any prior bladder or pelvic surgery. She states she has had significant constipation recently, and had difficulty having bowel movements. She denies any gross hematuria, dysuria, urgency or frequency. She sometimes feels that she has to get up multiple times a night to urinate. She denies seeing a urologist previously. She denies history of kidney stones. PAST MEDICAL HISTORY: 1. Hypertension. 2. Hypothyroidism. 3. Metastatic colon cancer with metastasis to the lung and liver. 4. History of pulmonary embolus on anticoagulation. PAST SURGICAL HISTORY: 1. Hysterectomy. 2. Cholecystectomy. 3. Appendectomy. 4. Bunionectomy of the left foot. 5. Colon resection by Dr. Harrell. ALLERGIES: No known drug allergies. HOME MEDICATIONS: 1. Lisinopril 20 mg daily. 2. Levothyroxine 88 mcg daily. 3. Xarelto 20 mg daily. 4. Regorafenib 40 mg four tablets daily. SOCIAL HISTORY: Former smoker. Denies alcohol use. FAMILY HISTORY: Denies family history of malignancy. REVIEW OF SYSTEMS: Total review of systems performed without pertinent positives and negatives in HPI. PHYSICAL EXAMINATION: Vital Signs: Temperature 97.4 degrees, heart rate 104, blood pressure 103/57, oxygen saturation 96% on nasal cannula. General: No acute distress. Resting comfortably in bed. HEENT: Normocephalic, atraumatic. Pupils equal, round, reactive to light. There is evidence of scleral icterus. Neck: Trachea midline. No obvious masses. Respiratory: Good respiratory effort without audible wheezing or rales. Slight increased work of breathing. Cardiovascular: Regular rate and rhythm. Abdomen: Distended. No palpable masses. There is hepatosplenomegaly and what appears to be ascites. : No suprapubic tenderness. No CVA tenderness. Urethral catheter in place draining yellow urine. No evidence of any sediment. Skin: Evidence of jaundice. Neurologic: Moving all extremities. No gross motor or sensory deficits. LABS: White blood cell count 9.4, hemoglobin 12, hematocrit 36.1, platelets 151. Sodium 132, potassium 5.5, chloride 96, bicarbonate 23. BUN 13, creatinine 0.7, glucose 112. Bilirubin 12.3, AST 109, ALT 35, alkaline phosphatase 769. ASSESSMENT AND PLAN: Ms. De La Garza is a 64-year-old with history of hypertension, hypothyroidism, metastatic colon cancer with metastasis to the lung and liver, as well as history of pulmonary embolus on anticoagulation, who presents in consultation for urinary retention. The patient has indwelling catheter inserted at this time. She states she has difficulty with urination at home. She feels like she has to strain to urinate, and sensation of incomplete emptying. The patient states she is often constipated regarding to her history of colon cancer. I think chronically patient likely is constipated, which leads to difficulty with voiding. Prior imaging showed slightly distended bladder in the past from other CT scans. She denies any urgency or frequency. No evidence of blood or dysuria. She states she has had some urinary tract infections in the past, but cultures most recently were negative. She did have a positive urine culture back in 2019 that grew Escherichia coli. She states that she has not seen a urologist previously. Clinically, I would state that she likely should continue with indwelling catheter to help with her urinary retention. I told her that we could consider outpatient evaluation for etiologies for retention. I think with her constipation, this likely leads to worsening symptoms. She is considering palliative care due to the extent of her colon cancer. She has a consultation in place for Hematology/Oncology as she sees Dr. Murray regarding this. From a Urology standpoint, would keep indwelling catheter in for the time being. If the patient desires suprapubic tube or to learn clean intermittent catheterization, if she has true retention, we could consider this. The patient denies any bladder spasms with indwelling catheter in at this time. We will continue to monitor clinically. Would plan for outpatient followup. cc: Rommel Camejo MD MTDD
[2020-01-28] MEDS ORDERED: ZYVOX 600 MG/D5W 600 MG/300 ML IVPB IV SCH (10:00)
[2020-01-28 13:04] LABS: AGAP 13; ALBUMIN 2.5 g/dL (3.5-5.0); BUN 28 mg/dL (8-22); CALCIUM 9.4 mg/dL (8.8-10.2); CHLORIDE 96 mmol/L (98-107); COSMO 267; CREATININE 0.8 mg/dL (0.5-0.9); ESTIMATED GFR > 60; GLUCOSE 110 mg/dL (70-104); PHOSPHORUS 4.5 mg/dL (2.7-4.5); POTASSIUM 5.9 mmol/L (3.5-5.1); SODIUM 130 mmol/L (136-145); TCO2 21 mmol/L (25-35)
[2020-01-28 15:33] VITALS: BP 102/63
[2020-01-28] MEDS: PATIENT'S OWN MED PO SCH (16:47)
--- NOTE | 2020-01-31 10:43 | HEMO/ONC CONSULTATION ---
DATE: 01/28/2020 CONSULTATION REQUESTED BY: Hospitalist Service. REASON FOR CONSULTATION: Patient known. HISTORY OF PRESENT ILLNESS: Ms. De La Garza is a 64-year-old female who is known to us as we have been treating her for metastatic colorectal cancer. She has had some decline over the last couple of weeks related to her advancing cancer. She presented to the emergency department at [facility] complaining of shortness of breath, with productive cough with clear sputum, as well as bilateral lower extremity swelling. She was admitted to the hospital as she was found to have chest x-ray with bilateral infiltrates, as well as leukocytosis. She has most recently been treated with Stivarga though the medication is on hold secondary to toxicities and decline in performance status. The patient is heavily pretreated. PAST MEDICAL HISTORY: 1. Hypertension. 2. Hypothyroidism. 3. Metastatic colorectal cancer with metastasis to the liver and to the lungs. 4. History of pulmonary embolism, on chronic Xarelto. PAST SURGICAL HISTORY: 1. Hysterectomy. 2. Cholecystectomy. 3. Appendectomy. 4. Colon resection. 5. Port placement. SOCIAL HISTORY: She has a 40+ pack-year history. She denies any alcohol use. She has a supportive family. FAMILY HISTORY: Positive for diabetes and hypertension as well as lung cancer. REVIEW OF SYSTEMS: A 12 point review of systems has been completed and is negative except for as expressed in the HPI. PHYSICAL EXAMINATION: Vital Signs: Temperature 97.5 degrees, heart rate 118, blood pressure 109/59, respiratory rate is 20, O2 saturation is 94% on 2 L nasal cannula. General: This is a chronically ill-appearing female who is lying in her hospital bed. She has muscle wasting. Head: Normocephalic, atraumatic. Eyes: Pupils appear to be equal, round, and reactive. Ears, nose, throat, neck and mouth: Oral mucosa appears to be dry but normal. Cardiovascular: Tachycardia. Respiratory: She has normal respiratory effort. Gastrointestinal: Abdomen is slightly distended. Musculoskeletal: No bony abnormalities. Skin: She has jaundice. Neurologic: The patient is alert and oriented, and able to answer questions. LAB STUDIES: White blood cells 14.89, hemoglobin 11.9, platelet count 224,000. Sodium 130, potassium 5.7, chloride 96, CO2 21, BUN 28, creatinine 0.8, glucose 119. Total bilirubin is 10.95, AST and ALT are 137 and 40 respectively, alkaline phosphatase is 169. ASSESSMENT AND PLAN: 1. Metastatic colorectal cancer with several lines of therapy, most recently on Stivarga. The patient has been having a slow decline in her performance status over the last several weeks. Discussed with the patient today about her options, which include continuing with palliative chemotherapy treatments versus comfort care/palliative care versus full hospice care. The patient reports that she is ready to proceed with hospice. Palliative care nurse has already been consulted and is actually due to come speak with the patient here shortly. Hospice is appropriate for this patient. Hopefully, the plan will be for her to be discharged soon home with hospice. 2. Multifocal pneumonia. Continue management per the primary team. 3. Acute hypoxic respiratory failure. This seems to have improved. Continue current management including oxygen support. 4. Hyperkalemia. Again, this also has improved. Continue treatment while in hospital per the primary team. 5. Transaminitis, with worsening liver function. This is likely secondary to her metastatic liver disease. Continue supportive care. 6. Chronic obstructive pulmonary disease exacerbation. Again, management per the primary team at this time. 7. Disposition. We recommend, and the patient is in agreement, to proceed with hospice care at this time. We will continue to follow along while the patient is here in the hospital and will be available. Dictated by VALERIANO Sawyer for Crista Murray MD cc: Crista Murray MD I have seen and examined the patient and the above note reflects my history, physical exam, assessment and plan. Crista Murray MD [facility]
--- NOTE | 2020-02-03 18:01 | DISCHARGE SUMMARY ---
ADMISSION DATE: 01/25/2020 DISCHARGE DATE: 01/28/2020 FINAL DISCHARGE DIAGNOSES: 1. Metastatic colon cancer. 2. Transaminitis secondary to diffuse hepatic metastasis. 3. Hypothyroidism. 4. Constipation. 5. Chronic anticoagulation. CONSULTATIONS: Oncology consultation with Dr. Murray. HOSPITAL COURSE: Ms De La Garza is a 64-year-old female with a history of metastatic colon cancer who presented to the ER with abdominal pain and shortness of breath. On admission, a CT of the chest, abdomen, and pelvis revealed worsening metastatic disease. Palliative care was ordered to assist with goals of care as well as Dr. Murray was consulted for further recommendations. After discussion with the patient, she decided that she wanted to be discharged home with hospice services. [facility] was consulted and coordinated with the patient. The patient was ultimately discharged home with hospice services on 01/28/2020. cc: Liliya Louise MD
== END 2020-01-28 19:00 | disposition hospice, home (50) | DRG 180 ==
LOC: P.ED 21:51 → 3N 21:52 → SUATTDRO 21:52
PROVIDERS: ATTEND Internal Medicine